=== PATIENT | male | born 1960 | race Caucasian/White ===

== ENCOUNTER 2019-12-19 15:05 | Emergency (ER) | payer BC ==
[2019-12-19 15:20] VITALS: BP 152/89; PULSE 79; TEMP 99.1; BMI 24.7
--- NOTE | 2019-12-19 15:54 | PDOC ---
History of Present Illness - General Chief Complaint: Cold Symptoms Stated Complaint: FLU SYMPTOMS Time Seen by Provider: 12/19/19 15:19 History Source: Patient Exam Limitations: No Limitations Past History - Past Medical History Allergies/Adverse Reactions: Allergies Allergy/AdvReac Type Severity Reaction Status Date / Time No Known Allergies Allergy Verified 12/19/19 15:18 Home Medications: Ambulatory Orders Insulin Glargine,Hum.rec.anlog [Lantus] 18 unit SQ DAILY 05/20/12 metFORMIN HCL [Glucophage] 1,000 mg PO DAILY 05/20/12 Ibuprofen [Motrin -] 600 mg PO QID #28 tablet 07/12/16 COPD: No Diabetes: Yes HTN: Yes Hypercholesterolemia: Yes - Immunization History Immunization Up to Date: Yes - Psycho Social/Smoking Cessation Hx Smoking Status: No Smoking History: Current every day smoker Have you smoked in the past 12 months: Yes Number of Cigarettes Smoked Daily: 20 Information on smoking cessation initiated: No Hx Alcohol Use: No Drug/Substance Use Hx: No Substance Use Type: None *Physical Exam - Vital Signs Last Vital Signs Temp Pulse Resp BP Pulse Ox 99.1 F 79 20 152/89 97 12/19/19 15:15 12/19/19 15:15 12/19/19 15:15 12/19/19 15:15 12/19/19 15:15 - Physical Exam General Appearance: No: Apparent Distress HEENT: positive: Nasal Congestion (mild). negative: Rhinorrhea Respiratory/Chest: positive: Lungs Clear, Normal Breath Sounds. negative: Respiratory Distress Cardiovascular: positive: Regular Rhythm, Regular Rate, S1, S2. negative: Murmur Gastrointestinal/Abdominal: positive: Normal Bowel Sounds, Soft. negative: Tender, Distended, Guarding, Rebound Integumentary: positive: Normal Color Neurologic: positive: Alert Medical Decision Making - Medical Decision Making 59 y/o M hx of HTN, DM presents with fever (Tmax 101), body aches, chills, cough x 3 days. +sick family members with similar symptoms. Denies sob, cp, abd pain, n/v/d. Last took Tylenol yesterday Likely viral syndrome No longer febrile today Patient adamant on receiving Tamiflu (appears to want it for his though explained can not prescribe for his ) Will check for flu first Flu swab sent 12/19/19 15:50 Flu negative stable for dc 12/19/19 16:39 Discharge - Discharge Information Problems reviewed: Yes Clinical Impression/Diagnosis: Viral URI Condition: Stable Disposition: HOME - Admission No - Additional Discharge Information Prescription Drug Monitoring Program (I-STOP) results: I-STOP not reviewed - Follow up/Referral Referrals: Shakir Montilla [Primary Care Provider] - 2 Days - Patient Discharge Instructions Patient Printed Discharge Instructions: DI for Viral Upper Respiratory Infection -- Adult Additional Instructions: Thank you for choosing [facility]. It was a pleasure taking care of you. You have viral infection Alternate between Tylenol every 4 and Motrin every 6 hours as needed for fever Recommend rest and hydration Follow-up with your doctor in 2 days Return to the Emergency Department if your symptoms worsen or persist or have other concerning symptoms. - Post Discharge Activity
== END 2019-12-19 16:51 | disposition home or self-care (01) ==
LOC: JERFT 15:05
DX: J06.9 Acute upper respiratory infection, unspecified (principal); B97.89 Other viral agents as the cause of diseases classified elsewhere; I10 Essential (primary) hypertension; E11.9 Type 2 diabetes mellitus without complications; Z79.4 Long term (current) use of insulin
CPT/HCPCS: 87804; 99281-25

== ENCOUNTER 2024-01-30 19:20 | Observation (INO) | payer BC, OTHER ==
[2024-01-30 20:26] LABS: BASO % 0.8 % (0-2.0); EOS % 0.9 % (0-4.5); HEMATOCRIT 36.5 % (35.4-49); HEMOGLOBIN 12.3 GM/dL (11.7-16.9); LYMPH % 20.2 % (8-40); MCH 30.7 pg (25.7-33.7); MCHC 33.6 g/dl (32.0-35.9); MEAN CELL VOLUME 91.4 fl (80-96); MEAN PLT VOLUME 6.9 fl (7.5-11.1); MONO % 8.1 % (3.8-10.2); PLATELET COUNT 297 10^3/uL (134-434); RDW 13.7 % (11.9-15.9); WHITE BLOOD COUNT 9.3 K/mm3 (4.0-10.0)
[2024-01-30 20:39] LABS: INR 0.96 (0.83-1.09); PROTHROMBIN TIME (PATIENT) 11.1 SEC (9.7-13.0)
[2024-01-30 20:42] LABS: ACTIVATED PTT 29.7 SECONDS (25.2-36.5)
[2024-01-30 20:58] LABS: POTASSIUM 4.8 mmol/L (3.5-5.1)
[2024-01-30 21:00] LABS: CALCIUM 9.2 mg/dL (8.5-10.1)
[2024-01-30 21:01] LABS: ALBUMIN 3.2 g/dl (3.4-5.0); BLOOD UREA NITROGEN 19.7 mg/dL (7-18)
[2024-01-30 21:04] LABS: CREATININE 1.3 mg/dL (0.55-1.3)
[2024-01-30 21:06] LABS: BILIRUBIN,TOTAL 0.6 mg/dL (0.2-1); TOT PROT 6.5 g/dl (6.4-8.2)
[2024-01-30] MEDS ORDERED: ACETAMINOPHEN 325 MG TABLET (FP) PO PRN (23:36)
[2024-01-31 02:10] VITALS: BMI 22.0
[2024-01-31] MEDS: INSULIN ASPART SLIDING SCALE (NOVOLOG) 1 VIAL SQ SCH (06:00)
[2024-01-31 07:43] LABS: BASO % 0.7 % (0-2.0); EOS % 0.9 % (0-4.5); HEMATOCRIT 33.9 % (35.4-49); HEMOGLOBIN 11.8 GM/dL (11.7-16.9); LYMPH % 22.5 % (8-40); MCH 31.5 pg (25.7-33.7); MCHC 34.9 g/dl (32.0-35.9); MEAN CELL VOLUME 90.3 fl (80-96); MEAN PLT VOLUME 7.4 fl (7.5-11.1); MONO % 9.4 % (3.8-10.2); NEUT % 66.5 % (42.8-82.8); PLATELET COUNT 268 10^3/uL (134-434); RBC 3.76 M/mm3 (4.00-5.60); RDW 13.8 % (11.9-15.9); WHITE BLOOD COUNT 8.1 K/mm3 (4.0-10.0)
[2024-01-31 07:45] LABS: POTASSIUM 4.3 mmol/L (3.5-5.1)
[2024-01-31 07:59] LABS: BLOOD UREA NITROGEN 17.8 mg/dL (7-18); MAGNESIUM 2.1 mg/dL (1.8-2.4)
[2024-01-31 08:01] LABS: CREATININE 0.9 mg/dL (0.55-1.3)
[2024-01-31 08:02] LABS: PHOSPHOROUS 3.3 mg/dL (2.5-4.9)
[2024-01-31 08:02] LABS: CHOLESTEROL 111 mg/dL (50-200)
[2024-01-31 08:03] LABS: BILIRUBIN,TOTAL 0.5 mg/dL (0.2-1); TOT PROT 6.1 g/dl (6.4-8.2)
[2024-01-31 08:06] LABS: LDL CHOLESTEROL (ONLY SJRH) 45 mg/dL (5-100)
[2024-01-31 08:07] LABS: HDL CHOLESTEROL 53 mg/dL (40-60)
[2024-01-31] MEDS: INSULIN (LEVEMIR) 100 UNITS/ML UNITS SQ SCH (10:05)
[2024-01-31] MEDS: HYDROCHLOROTHIAZIDE 25 MG TABLET (FP) PO ONE (10:07)
[2024-01-31] MEDS: CARVEDILOL 12.5 MG TABLET (FP) PO ONE (10:07)
[2024-01-31] MEDS: ENOXAPARIN NA (PORCINE) 40 MG/0.4 ML DISP.SYRIN SQ SCH (10:12)
[2024-01-31] MEDS: CARVEDILOL 12.5 MG TABLET (FP) PO SCH (10:13)
[2024-01-31] MEDS: HYDROCHLOROTHIAZIDE 12.5 MG CAPSULE (FP) PO SCH (10:13)
[2024-01-31] MEDS: ISOSORBIDE MONONITRATE 30 MG TAB.SR.24H (FP) PO SCH (11:16)
[2024-01-31 15:21] VITALS: BP 152/85; PULSE 64; RESP 17; TEMP 98.8
[2024-01-31] MEDS ORDERED: ATORVASTATIN CA 80 MG TABLET (FP) PO SCH (22:00)
[2024-01-31] MEDS ORDERED: LOSARTAN POTASSIUM 50 MG TABLET PO SCH (22:00)
[2024-02-01] MEDS ORDERED: HYDROCHLOROTHIAZIDE 25 MG TABLET (FP) PO SCH (10:00)
[2024-02-02] MEDS ORDERED: INSULIN (LEVEMIR) 100 UNITS/ML UNITS SQ SCH (08:19)
== END 2024-01-31 17:24 | disposition home or self-care (01) ==
LOC: JER 19:20 → JERBED 21:43 → J4W 01-31 02:23
PROVIDERS: ADMIT Internal Medicine; ATTEND Internal Medicine
PROC: 3E023GC Introduction of Other Therapeutic Substance into Muscle, Percutaneous Approach (ICD-10-PCS; principal; 2024-01-30)
PROC: 3E013VG Introduction of Insulin into Subcutaneous Tissue, Percutaneous Approach (ICD-10-PCS; 2024-01-30)
DX: I25.10 Atherosclerotic heart disease of native coronary artery without angina pectoris (principal); R07.89 Other chest pain; I16.0 Hypertensive urgency; E78.5 Hyperlipidemia, unspecified; I25.2 Old myocardial infarction; I11.0 Hypertensive heart disease with heart failure; E11.9 Type 2 diabetes mellitus without complications; Z95.5 Presence of coronary angioplasty implant and graft; Z95.1 Presence of aortocoronary bypass graft; I10 Essential (primary) hypertension
CPT/HCPCS: 0241U-QW; 36415; 71046-TC-FY; 80053; 80061; 82550; 82962; 83036; 83735; 84100; 84443; 84484; 85025; 85379; 85610; 85730; 93005; 93010; 96372; 99285-25; G0378